=== PATIENT | male | born 1990 | race Caucasian/White ===

== ENCOUNTER 2021-06-20 12:57 | Emergency (ER) | payer SELFPAY | END 2021-06-20 14:16 | disposition home or self-care (01) | LOC: ERS 12:57 | DX: K04.7 Periapical abscess without sinus (principal); K03.81 Cracked tooth | CPT/HCPCS: 41800 ==

== ENCOUNTER 2021-07-27 12:21 | Emergency (ER) | payer SELFPAY | END 2021-07-27 14:01 | disposition home or self-care (01) | LOC: ERS 12:21 | DX: R11.2 Nausea with vomiting, unspecified (principal); R19.7 Diarrhea, unspecified | CPT/HCPCS: 99283 ==